=== PATIENT | male | born 1975 | race Two or more races ===

== ENCOUNTER 2018-03-09 17:30 | Emergency (ER) | payer OTHER ==
[~2018-03-09] VITALS: Ht 167.6 cm; Wt 78.9 kg
[2018-03-09 18:22] VITALS: BP 144/103
--- NOTE | 2018-03-09 19:12 | NUR ---
Handoff/NKE to incoming RN-Jennifer. Pt waiting for XR results both pt and family aware of plan of care
== END 2018-03-09 20:34 | disposition home or self-care (01) ==
LOC: ER 17:30
DX: S93.402A Sprain of unspecified ligament of left ankle, initial encounter (principal); F17.200 Nicotine dependence, unspecified, uncomplicated; X50.1XXA Overexertion from prolonged static or awkward postures, initial encounter; Y93.89 Activity, other specified; Y92.89 Other specified places as the place of occurrence of the external cause; Y99.8 Other external cause status
CPT/HCPCS: 73610; 99284; 99406; A4606; Z7610